=== PATIENT | female | born 2000 | race Caucasian/White ===

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

== ENCOUNTER 2021-06-18 10:50 | Emergency (ER) | payer BC, OTHER ==
[2021-06-18 11:06] VITALS: BP 119/84; PULSE 73; RESP 18; TEMP 98
--- NOTE | 2021-06-18 11:25 | ED ---
General Adult HPI - General Chief complaint: Upper Respiratory Infection Stated complaint: Ear pain,Nasal drainage,Cough Time Seen by Provider: 06/18/21 11:07 Source: patient, RN notes reviewed Mode of arrival: ambulatory Limitations: no limitations - History of Present Illness Initial comments: 21-year-old female presents to the emergency room for a chief complaint of congestion. Patient states about 8 days ago she started to have a sore throat that turned into sinus congestion. Patient states she has a very slight cough. Patient states she gave it a week but it did not get better and is concerned she needs antibiotics. Patient does not have a fever. She denies nausea vomiting.Patient has no other complaints at this time including shortness of breath, chest pain, abdominal pain, nausea or vomiting, headache, or visual changes. - Related Data Previous Rx's Medication Instructions Recorded Ibuprofen [Motrin] 600 mg PO Q6HR PRN #30 tab 05/13/17 Amoxicillin/Potassium Clav 1 tab PO Q12HR #20 tab 06/18/21 [Augmentin 875-125 Tablet] Benzonatate [Tessalon Perles] 200 mg PO Q8H PRN #15 cap 06/18/21 guaiFENesin [Mucinex] 600 mg PO Q12HR PRN #20 tab 06/18/21 Allergies Allergy/AdvReac Type Severity Reaction Status Date / Time No Known Allergies Allergy Verified 06/18/21 11:05 Review of Systems ROS Statement: Those systems with pertinent positive or pertinent negative responses have been documented in the HPI. ROS Other: All systems not noted in ROS Statement are negative. Past Medical History Past Medical History: No Reported History History of Any Multi-Drug Resistant Organisms: None Reported Additional Past Surgical History / Comment(s): rhinoplasty Past Anesthesia/Blood Transfusion Reactions: No Reported Reaction Past Psychological History: No Psychological Hx Reported Smoking Status: Never smoker Past Alcohol Use History: None Reported Past Drug Use History: Marijuana - Past Family History Mother Family Medical History: No Reported History General Exam Limitations: no limitations General appearance: alert, in no apparent distress Head exam: Present: atraumatic Eye exam: Present: normal appearance, PERRL, EOMI. Absent: scleral icterus, conjunctival injection ENT exam: Present: normal exam, normal oropharynx, mucous membranes moist, TM's normal bilaterally, normal external ear exam Neck exam: Present: normal inspection, full ROM. Absent: tenderness Respiratory exam: Present: normal lung sounds bilaterally. Absent: respiratory distress, wheezes Cardiovascular Exam: Present: regular rate, normal rhythm, normal heart sounds GI/Abdominal exam: Present: soft, normal bowel sounds. Absent: distended, tenderness Neurological exam: Present: alert Course Vital Signs 06/18/21 11:00 Temperature 98.0 F Pulse Rate 73 Respiratory 18 Rate Blood Pressure 119/84 O2 Sat by Pulse 95 Oximetry Medical Decision Making - Medical Decision Making Patient is refusing a coronavirus test, states she does not want one. Refuses chest Xr as well. Patient is concerned she needs antibiotics for congestion. Symptoms have been ongoing for 8 days. She does have some maxillary sinus tenderness. At this and we will start her on Augmentin. She will follow with her doctor. She will return here for any worsening symptoms. I did express that I could not rule out coronavirus and she could be contagious. Disposition Clinical Impression: Sinusitis Disposition: HOME SELF-CARE Condition: Good Instructions (If sedation given, give patient instructions): Sinusitis (ED) Additional Instructions: Please follow up with your doctor in 1-2 days. Return to the ER for any wor sening symptoms. Prescriptions: Amoxicillin/Potassium Clav [Augmentin 875-125 Tablet] 1 tab PO Q12HR #20 tab guaiFENesin [Mucinex] 600 mg PO Q12HR PRN #20 tab PRN Reason: Congestion Benzonatate [Tessalon Perles] 200 mg PO Q8H PRN #15 cap PRN Reason: Cough Is patient prescribed a controlled substance at d/c from ED?: No Referrals: Emily Bazzi MD [STAFF PHYSICIAN] - 1-2 days Time of Disposition: 11:24
== END 2021-06-18 11:36 | disposition home or self-care (01) ==
LOC: EC 10:50
DX: J32.9 Chronic sinusitis, unspecified (principal)
CPT/HCPCS: 99283